=== PATIENT | female | born 1950 | race Hispanic/Latino ===

== ENCOUNTER → 2018-08-28 | Day surgery (SDC) | payer MEDICARE ==
[2018-08-22 08:06] VITALS: BMI 38.7
[~2018-08-28] MED LIST: Midazolam 2 MG/2 ML VIAL IVP ONE; Midazolam 2 MG/2 ML VIAL ONE; Sodium Chloride 0.45% 1,000 ML IV SCH
[2018-08-28 13:19] LABS: BASO # 0.05 K/mm3 (0.0-2.0); BASO % 0.5 % (0.0-3.0); EOS # 0.2 (0.0-0.7); EOS % 1.5 % (1.5-5.0); HEMOGLOBIN 15.6 g/dL (12.0-16.0); LYMPH # 2.6 (1.2-3.4); MEAN CELL VOLUME 89.3 fl (80.0-105.0); MEAN CORPUSCULAR HEMOGLOBIN 30.4 pg (25.0-35.0); MEAN CORPUSCULAR HGB CONC 34.1 g/dl (31.0-37.0); MEAN PLATELET VOLUME 10.2 fl (7.0-11.0); MONO # 0.7 (0.1-0.6); MONO % 6.8 % (1.0-6.0); RBC 5.13 10^6/uL (3.5-6.1); RED CELL DISTRIBUTION WIDTH 13.7 % (11.5-14.5); WHITE BLOOD COUNT 9.8 10^3/uL (4.5-11.0)
[2018-08-28 13:28] LABS: INR 1.14; PARTIAL THROMBOPLASTIN TIME 33.3 Seconds (26.9-38.3); PROTHROMBIN TIME 12.9 SECONDS (9.4-12.5)
[2018-08-28 13:32] LABS: BLOOD UREA NITROGEN 12 mg/dL (7-21); CALCIUM 10.5 mg/dL (8.4-10.5); GFR NON-AFRICAN AMERICAN > 60
[2018-08-28 16:29] VITALS: RESP 20; TEMP 98
[2018-08-28 17:09] VITALS: BP 118/64; PULSE 66; O2SAT 96
--- NOTE | 2018-08-28 17:41 | US ---
PROCEDURE: Ultrasound-guided right thyroid fine needle aspiration biopsy. CLINICAL HISTORY: Goiter. Multiple large nodules. Hypervascular dominant 2 cm right lateral nodule. Evaluate for malignancy. PHYSICIAN(S): Johnathan Barber M.D. TECHNIQUE: The relative risks and indications for the procedure were explained to the patient and consent obtained. The patient was placed supine on the stretcher with the neck extended and preliminary sonography of the thyroid performed. This reveal a for vascular 2 cm hypoechoic nodule lateral aspect of the right mid thyroid. Numerous additional nodules are seen. The neck was prepped and draped in the usual sterile fashion. Conscious sedation and monitoring were provided throughout the procedure by a nurse. 1% Xylocaine was used to anesthetize the skin and soft tissues at the access site. Three passes with a 22-gauge needle were performed under ultrasound guidance for fine needle aspiration of the 2 cm hypoechoic nodule in the right thyroid. The slides were reviewed by pathology and deemed adequate. The patient tolerated the procedure well. IMPRESSION: 1. Ultrasound guided fine needle aspiration of a 2 cm hypoechoic hypervascular nodule in the lateral aspect of the right thyroid
== END | disposition home or self-care (01) ==
LOC: SDS 12:25
PROVIDERS: ATTEND Radiology Vascular & Interventional Radiology
DX: E04.1 Nontoxic single thyroid nodule (principal); I10 Essential (primary) hypertension; I25.10 Atherosclerotic heart disease of native coronary artery without angina pectoris; Z91.048 Other nonmedicinal substance allergy status
CPT/HCPCS: 10005; 36415; 80048; 85025; 85610; 85730; 88173; 88305; J2250; J2405; J3010; J7030